=== PATIENT | female | born 1970 | race Caucasian/White ===

== ENCOUNTER → 2020-07-19 14:00 | Outpatient (BNVA) | payer SELFPAY | PROVIDERS: Family Provider Family Medicine; Visit Provider Obstetrics & Gynecology | DX: Z12.4 Encounter for screening for malignant neoplasm of cervix (principal) | CPT/HCPCS: 88175 ==

== ENCOUNTER 2022-11-27 09:20 | Outpatient (CLI) | payer SELFPAY ==
--- NOTE | 2022-11-27 09:35 | MM_ITS ---
WS: [id number] VIEWS: MLO and CC views both breasts. 3D digital tomosynthesis is also included in this exam. Breast implant displacement MLO and cc views also included in the series. Comparison made with prior exam of 05/15/2007, 07/27/2013, 08/18/2013, Findings: There was no sign of mass, architectural distortion or suspicious calcification in either breast. Int act bilateral breast implants in place. There are areas of scattered fibroglandular density. Impression: MM/[place] [id number] BI-RADS: 2-Benign FOLLOW-UP: 1 Year Follow-up This mammogram was also analyzed by the Computer Aided Detection System [employer].
== END 2022-11-27 09:21 | disposition home or self-care (01) ==
LOC: RAD 09:22 → MOBLMAM 09:29 → RAD 09:35
PROVIDERS: PCP Family Medicine; Visit Provider Family Medicine
DX: Z12.31 Encounter for screening mammogram for malignant neoplasm of breast (principal)
CPT/HCPCS: 77063; 77067